=== PATIENT | male | born 1960 | race Caucasian/White ===

== ENCOUNTER 2025-01-09 14:03 | Outpatient (CLI) | payer OTHER, SELFPAY ==
--- OUTSIDE RECORDS SUMMARY | 2025-01-09 14:16 | XMS_ITS | Clinical Summary ---
Author Organization [facility] Address [address] [place] [address] Care Team Providers Care Head Of Science Name Role Phone Lindsey Toscano DO Primary Care Provider [phone] Allergies No known active allergies Medications atorvastatin (LIPITOR) 10 MG tablet Take 1 tablet (10 mg total) by mouth nightly at bedtime. Active losartan (COZAAR) 50 MG tablet Take 1 tablet (50 mg total) by mouth daily. Active sertraline (ZOLOFT) 100 MG tablet Take 1.5 tablets (150 mg total) by mouth daily. 10/17/2011 Active Active Problems Problem Noted Date Diagnosed Date Colonic mass 05/22/2024 Constipation, unspecified constipation type 09/05 Overview (09/16/2022): Added automatically from request for surgery [id number] Screening for colon cancer 09/16/2022 Overview (09/16/2022): Added automatically from request for surgery [id number] Family History Relation Status Comments Father Mother Social History Tobacco Use Types Packs/Day Years Used Date Smoking Tobacco: Former Cigarettes Q uit: 1987 Passive Smoke Exposure: Never Smokeless Tobacco: Never Tobacco Cessation:Counseling Given: No Alcohol Use Standard Drinks/Week Comments Never 0 (1 standard drink = 0.6 oz pur e alcohol) PHQ-2 Answer Date Recorded Patient Health Questionnaire-2 Score 0 05/22/2024 Sex and Gender Information Value Date Recorded Sex Assigned at Not on file Legal Sex Male 7:01 PM CDT Gender Identity Not on file Sexual Orientation Not on file Last Filed Vital Signs Vital Sign Reading Time Taken Comments Blood Pressure 132/58 07/12/2024 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 Pulse 58 07/12/2024 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 Temperature 36.7 C (98.1 F) 07/12/2024 10:14 AM LANCE CREWMEMBER Respiratory Rate 16 07/12/2024 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 Oxygen Saturation 99% 07/12/2024 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 Inhaled Oxygen Concentration - - Weight 102.1 kg (225 lb) 07/12/2024 10:14 AM 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 CREWMEMBER Height 180.3 cm (5' 11) 07/12/2024 10:14 AM LANCE CREWMEMBER Body Mass Index 31.38 07/12/2024 10:14 AM LANCE CREWMEMBER Plan of Treatment Health Maintenance Due Date Last Done Comments Annual Physical 1964 Hepatitis C 1979 Pneumococcal Vaccine: 50+ Years (1 of 1 - PCV) 2011 Zoster Vaccines (1 of 2) 2011 COVID-19 Vaccine (3 - 2023-2 5 season) 2024 08/28/2020, 08/07/2020 DTaP, Tdap and Td Vaccines ( 2 - Td or Tdap) 01/26/2030 01/27/2020 Colorectal Cancer Screening Colonoscopy (10 Years) 07/12/2034 07/12/2024, 10/28/2022 RSV Immunization or 60+ Years (1 - 1-dose 75+ series) 2036 PHQ-2 (Physician [place]) Completed 05/22/2024 Meningococcal B Vaccine Aged Out No l onger eligible based on patient's age to complete this topic Meningococcal Vaccine Aged Out No todd raoul eligible based on patient's age to complete this topic RSV Immunizations Under 20 Months Aged Out No longer eligible b ased on patient's age to complete this topic Insurance [employer] Care Teams Head Of Science Relationship Specialty Start Date End Date Lindsey Toscano DO [address] [place] [address] PCP - General FAMILY PRACTICE 08/16/21
--- OUTSIDE RECORDS SUMMARY | 2025-01-09 14:16 | XMS_ITS | Clinical Summary ---
Author Organization [facility] Address [address] [place] [id number] Care Team Providers Care Staff Radiologist Name Role Phone Lindsey Toscano DO Primary Care Provider [phone] Evelio Floyd MD Unavailable Otto Wilson MD Unavailable [phone] Allergies No known active allergies Medications atorvastatin (LIPITOR) 10 mg tablet Take 1 tablet (10 mg total) by mouth every morning Active losartan (COZAAR) 50 mg tablet Take 1 tablet (50 mg total) by mouth every morning Active sertraline (ZOLOFT) 100 mg tablet Take 1.5 tablets (150 mg total) by mouth every morning Active multivitamin capsule Take 1 capsule by mouth every morning Active Active Problems Problem Noted Date Diagnosed Date History of colon polyps 04/06/2023 Cecal polyp 01/13/2023 Adenomatous polyp of ascending colon 12/27/2022 Immunizations Immunization Administration Dates Next Due Influenza, Quadrivalent, Spl it, Preservative Free, Intramuscular 03/07/2023 Surgical History Surgery Date Site/Laterality Comments LUMBAR SPINE SURGERY 05/08/2012 - 05/07/2013 KNEE ARTHROSCOPY 05/08/1984 - 05/07/1985 Left COLONOSCOPY 10/28/2022 with polypectomy LAPAROSCOPIC RIGHT COLON RESECTION 03/06/2023 Medical History Medical History Date Comments Anxiety 1984 Hypertension 1989 Family History Medical History Relation Name Comments Hypertension Father Thuan Mckeon Anesthesia problems Neg Hx Relation Name Status Comments Father Thuan Mckeon Social History Tobacco Use Types Packs/Day Years Used Date Smoking Tobacco: Former Cigarettes 1 3.2 0 10/24/1979 - 12/30/1982 Smokeless Tobacco: Never Tobacco Cessation:Counseling Given: Not Answered AUDIT-C Answer Date Recorded Q1: How often do you have a drink containing alc ohol? Monthly or less 03/06/2023 Q2: How many drinks containi ng alcohol do you have on a typical day when you are drinking? 1 or 2 03/06/2023 Q3: How often do you have si x or more drinks on one occasion? Never 03/06/2023 Personal Safety Answer Date Recorded Have you ever been in or are you currently in a harmful physical or emotional relationship or is someone making you feel afraid or unsafe? 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[employer]IC Temperature 36.7 C (98.1 F) 04/06/2023 2:23 PM SANDING MACHINE TEND[employer] Respiratory Rate 20 03/09/2023 8:50 AM CDT Oxygen Saturation 96% 04/06/2023 2:23 PM SANDING MACHINE TEND[employer] Inhaled Oxygen Concentration - - Weight 99.3 kg (219 lb) 04/06/2023 2:23 PM SANDING MACHINE T[employer] Height 179.1 cm (5' 10.5) 04/06/2023 2:23 PM CS T Body Mass Index 30.98 04/06/2023 2:23 PM SANDING MACHINE TEND[employer] Plan of Treatment Health Maintenance Due Date Last Done Comments Colon Cancer Screening-Colonoscopy 1961 Depression Screening 1961 Hepatitis C Screening 1961 Prostate Cancer Screening-PSA 1961 Hepatitis B Screening 1979 Regular Well Visit/Exam 18-64 1979 Zoster Vaccine (1 of 2) 2011 Covid-19 Vaccine (3 - 2023-2 5 season) 2024 08/28/2020, 08/07/2020 Influenza Vaccine (#1) 2025 3, 04/12/2018 DTaP/Tdap/Td Vaccine (2 - Td or Tdap) 01/26/2030 01/27/2020 Pneumococcal vaccine <65 Aged Out No longer eligible based on patient's age to complete this topic Insurance [facility] Address: [address] [address] [place] [address] [facility] Address: [address] [address] [place] [address] Advance Directives For more information, please contact: [phone] * Full Code (Latest Code Status on File) Date Activated Date Inactivated Comments 03/06/2023 6:02 PM 03/09/2023 8:24 PM Care Teams Staff Radiologist Relationship Specialty Start Date End Date Lindsey Toscano DO PCP - General Family Medicine 03/07/23 Evelio Flyod MD [address] [address] Referring Physician Gastroenterology 03/22/23 Otto Wilson MD [phone] [place] [address] Surgeon Colon and Rectal Surgery 03/22/23
--- OUTSIDE RECORDS SUMMARY | 2025-01-09 14:16 | XMS_ITS | Clinical Summary ---
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 Gender Identity Not on file Sexual Orientation Not on file Plan of Treatment Health Maintenance Due Date Last Done Comments DTAP/TDAP/TD VACCINES (1 - Tdap) 1980 COLORECTAL SCREENING 2006 Colorectal Cancer Screening 2006 FIT-DNA Q 3 years 2006 FIT/FOBT Q 1 year 2006 Flex Sig/CT Colonography Q 5 years 2006 ZOSTER VACCINE (1 of 2) 2011 INFLUENZA VACCINE (#1) 2024 RSV VACCINE (60+ or ) (1 - 1-dose 75+ series) [address] [place] [address] [place] [address] [employer] PPO [id number] Care Teams Test Tech Relationship Specialty Start Date End Date Fremin Sherman MD [address] [place] [address] PCP - General Family Practice 05/29/12
== END 2025-01-09 14:04 | disposition home or self-care (01) ==
LOC: ANHAUDIO 14:03
PROVIDERS: PCP Family Medicine; Visit Provider Family Medicine
DX: E78.2 Mixed hyperlipidemia (principal); I10 Essential (primary) hypertension; R73.03 Prediabetes; E66.09 Other obesity due to excess calories; H93.13 Tinnitus, bilateral; H90.3 Sensorineural hearing loss, bilateral
CPT/HCPCS: 92557; 92567